=== PATIENT | male | born 1950 | race Caucasian/White ===

== ENCOUNTER 2016-09-25 15:37 | Emergency (ER) | payer MEDICARE, SELFPAY ==
[2016-09-25 17:52] LABS: HEMOGLOBIN 15.6 gm/dl (14.0-17.5); RED BLOOD COUNT 4.64 M/UL (4.20-5.50)
[2016-09-25 18:32] LABS: BUN/CREATININE RATIO 16 (0-10)
[2016-09-27 14:19] LABS: WHITE BLOOD COUNT 16.1 K/UL (4.5-11.0)
== END 2016-09-25 22:20 | disposition home or self-care (01) ==
LOC: ER1 15:37
PROVIDERS: Nurse Practitioner Family
DX: R10.9 Unspecified abdominal pain (principal); I25.10 Atherosclerotic heart disease of native coronary artery without angina pectoris; E11.9 Type 2 diabetes mellitus without complications; I10 Essential (primary) hypertension; E78.5 Hyperlipidemia, unspecified; F17.210 Nicotine dependence, cigarettes, uncomplicated; Z79.84 Long term (current) use of oral hypoglycemic drugs; Z79.899 Other long term (current) drug therapy
CPT/HCPCS: 36415; 80053; 81001; 82150; 83605; 83690; 85025; 85048; 87040; 87086; 96374; 96375; 99284; J1335; J2270; J2405; J7050; Q9962

== ENCOUNTER 2016-10-04 13:56 | Emergency (ER) | payer MEDICARE, SELFPAY ==
[2016-10-04 15:20] LABS: HEMOGLOBIN 15.1 gm/dl (14.0-17.5); RED BLOOD COUNT 4.47 M/UL (4.20-5.50); WHITE BLOOD COUNT 11.7 K/UL (4.5-11.0)
[2016-10-04 15:43] LABS: BUN/CREATININE RATIO 11 (0-10)
== END 2016-10-04 19:17 | disposition home or self-care (01) ==
LOC: ER1 13:56
PROVIDERS: Emergency Medicine
DX: R10.9 Unspecified abdominal pain (principal); B02.9 Zoster without complications; E11.65 Type 2 diabetes mellitus with hyperglycemia; N20.0 Calculus of kidney; I12.9 Hypertensive chronic kidney disease with stage 1 through stage 4 chronic kidney disease, or unspecified chronic kidney disease; N18.9 Chronic kidney disease, unspecified; E11.22 Type 2 diabetes mellitus with diabetic chronic kidney disease; F17.210 Nicotine dependence, cigarettes, uncomplicated; Z79.02 Long term (current) use of antithrombotics/antiplatelets; Z79.82 Long term (current) use of aspirin; Z79.84 Long term (current) use of oral hypoglycemic drugs; Z79.899 Other long term (current) drug therapy
CPT/HCPCS: 36415; 71010; 80053; 81001; 82550; 82553; 83605; 83690; 83874; 84484; 85025; 85610; 85730; 87086; 96361; 96374; 99284; J2270